=== PATIENT | male | born 1965 | race Caucasian/White ===

== ENCOUNTER 2017-03-03 15:44 | Emergency (ER) | payer OTHER ==
[~2017-03-03] VITALS: Ht 167.6 cm; Wt 79.5 kg
[2017-03-03 15:53] VITALS: BP 152/94
== END 2017-03-03 16:44 | disposition home or self-care (01) ==
LOC: EMS 15:48 → EDBD 15:48 → EMS 16:44
DX: N48.89 Other specified disorders of penis (principal); I10 Essential (primary) hypertension; Z87.442 Personal history of urinary calculi
CPT/HCPCS: 99283